=== PATIENT | male | born 1995 | race Two or more races ===

== ENCOUNTER 2024-05-02 06:18 | Emergency (ER) | payer SELFPAY ==
[~2024-05-02] VITALS: Ht 170.2 cm; Wt 97.6 kg
[2024-05-02] MEDS ORDERED: HYDR-4902 PO (07:25)
[2024-05-02] MEDS ORDERED: AMOX500T3 PO (07:25)
[2024-05-02 07:31] VITALS: BP 111/62; PULSE 68; RESP 18; TEMP 98; O2SAT 98
== END 2024-05-02 07:34 | disposition home or self-care (01) ==
LOC: ER 06:18
DX: K08.89 Other specified disorders of teeth and supporting structures (principal); Z79.1 Long term (current) use of non-steroidal anti-inflammatories (NSAID); Z79.891 Long term (current) use of opiate analgesic